=== PATIENT | male | born 1955 | race Caucasian/White ===

== ENCOUNTER 2020-08-14 19:07 | Emergency (ER) | payer MEDICAID, SELFPAY ==
[2020-08-14 19:09] VITALS: BP 165/99; PULSE 101; RESP 16; TEMP 37.4; O2SAT 95; BMI 32.8
--- NOTE | 2020-08-14 19:34 | ECG_ITS ---
APPROVED REPORT Exam: Resting ECG HR:102 bpm ECG Measurements Heart Rate 102 AXES WV 186 P 24 QRSd 84 QRS 38 QT 318 T 35 QTc 414 Conclusion Sinus tachycardia Otherwise normal ECG Electronically signed by : Jose Sellers, 08/16/2020 13:50:59
--- NOTE | 2020-08-14 19:35 | XR_ITS ---
PROCEDURE: XR CHEST 2V CLINICAL HISTORY: chest pain Left-sided chest pain COMPARISON: No exams were available for comparison FINDINGS: The cardiomediastinal silhouette and pulmonary vascularity are within normal limits. Increased density is present in the left lower lobe and in the right infrahilar region. These findings may be due to atelectasis and/or infiltrate. Upper lobes are clear. No acute bony findings. IMPRESSION: Atelectasis versus infiltrate in the left lung base and right infrahilar region. Suggest following till clear Dictated by: Wade Schaeffer MD 08/15/2020 05:58 Wade Schaeffer MD in [place] 08/15/2020 05:58
[2020-08-14 19:43] LABS: Basophils % 0.7 % (0.1-2.0); Eosinophils % 0.5 % (0.1-12.0); Hematocrit 42.9 % (42.0-52.0); Hemoglobin 14.1 g/dL (14.1-18.0); Lymphocytes # 0.9 K/mm3 (0.7-4.5); Lymphocytes % 15.7 % (10-50); Mean Corpuscular HGB Conc 32.8 g/dL (31.8-35.4); Mean Corpuscular Hemoglobin 28.2 pg (27.0-31.2); Mean Corpuscular Volume 86.1 fl (80-94); Mean Platelet Volume 6.7 fl (7.4-10.4); Monocytes # 0.3 K/mm3 (0.1-1.0); Monocytes % 5.7 % (1.7-9.3); Neutrophils # 4.2 K/mm3 (1.8-7.8); Neutrophils % 77.3 % (37.0-80.0); Platelet Count 226 K/mm3 (142-424); Red Blood Count 4.98 M/mm3 (4.60-6.20); White Blood Count 5.4 K/mm3 (4.8-10.8)
[2020-08-14 19:44] LABS: Chloride 99 mmol/L (98-107)
[2020-08-14 19:45] LABS: Sodium 136 mmol/L (136-145)
[2020-08-14 19:47] LABS: Blood Urea Nitrogen 14 mg/dl (9-20); Creatinine Clearance Estimated 93 mL/min (50-200); Estimated Glomerular Filt Rate 68 ml/min (>60); GFR (African American) 82 ML/MIN (>60)
--- NOTE | 2020-08-14 19:47 | HMH.EDGENADL ---
ED Disposition Condition on Discharge: Good - Critical Care Critical Care Time: No <Rahul Milian - Last Filed: 08/14/20 19:57> <Jaison Huynh - Last Filed: 08/14/20 22:06> Clinical Impression: COVID-19 Headache Qualifiers: Headache type: unspecified Headache chronicity pattern: acute headache Intractability: not intractable Qualified Code(s): R51.9 - Headache, unspecified Chest pain Qualifiers: Chest pain type: unspecified Qualified Code(s): R07.9 - Chest pain, unspecified Disposition: Home, Self-Care Instructions: Preventing the Spread of Coronavirus Discharge Instructions Additional Instructions: fluids and see pcp for follow up Referrals: Roxanna Pope [Primary Care Provider] - Attestation: On 08/14/20, the high probability of a clinically significant, sudden or life threatening deterioration of the following system(s) required my full and direct attention, intervention and personal management. The time I documented below is in addition to time spent performing reported procedures but includes the following listed in this critical care notation. Medical Decision Making - Shay Inquiry Pt receiving controlled substance: No - Lab Data Result diagrams: 08/14/20 19:20 08/14/20 19:20 - OSITO Score for Non-Stemi Age of Patient: 60-69 years old Heart Rate: 90-109 bpm Systolic Blood Pressure: 160-199 mmHg Serum Creatinine: 0.80-1.19 mg/dl CHF [place] Class: I-No CHF <Rahul Milian - Last Filed: 08/14/20 19:57> - Lab Data Lab results reviewed: Yes: I reviewed the patient's lab results. Result diagrams: 08/14/20 19:20 08/14/20 19:20 - Radiology Data #1 Image(s): Chest Image Reviewed: Yes I reviewed the patient's radiology image Preliminary Findings: Abnormal (early inflitrate ) - OSITO Score for Non-Stemi Age of Patient: 60-69 years old Heart Rate: 90-109 bpm Systolic Blood Pressure: 160-199 mmHg Serum Creatinine: 0.80-1.19 mg/dl CHF [place] Class: I-No CHF Other Risk Factors: None Non-Stemi Risk Score: 90 <Jaison Huynh - Last Filed: 08/14/20 22:06> Vital Signs: 08/14/20 19:09 Temperature 99.3 F Temperature Source Oral Pulse Rate [Left Radial] 101 H Respiratory Rate 16 Blood Pressure [Right Arm] 165/99 H Blood Pressure Mean [Right Arm] 121 Blood Pressure Source [Right Arm] Automatic Cuff Blood Pressure Position [Right Arm] Sitting 02 Sat by Pulse Oximetry 95 Oxygen Delivery Method Room Air - Lab Data Lab Results 08/14/20 19:20: WBC 5.4, RBC 4.98, Hgb 14.1, Hct 42.9, MCV 86.1, MCH 28.2, MCHC 32.8, RDW 13.0, Plt Count 226, MPV 6.7 L, Neut % (Auto) 77.3, Lymph % (Auto) 15.7, Stanton % (Auto) 5.7, Eos % (Auto) 0.5, Baso % (Auto) 0.7, Neut # (Auto) 4.2, Lymph # (Auto) 0.9, Stanton # (Auto) 0.3, Eos # (Auto) 0.0, Baso # (Auto) 0.0 08/14/20 19:20: Sodium 136, Potassium 4.0, Chloride 99, Carbon Dioxide 29, Anion Gap 12.0, BUN 14, Creatinine 1.10, Estimated Creat Clear 93, Estimated GFR 68, Est GFR ( Amer) 82, Glucose 121 H, Calcium 9.1, Troponin I < 0.01 08/14/20 19:20: SARS-CoV-2 IgG Ab (Rapid) Positive A, SARS-CoV-2 IgM Ab (Rapid) Positive A 08/14/20 20:20: Chlamy pneumoniae PCR Not detected, Adenovirus (PCR) Not detected, B. pertussis DNA (PCR) Not detected, Coronavirus OC43 (PCR) Not detected, Coronavirus HKU1 (PCR) Not detected, Coronavirus 229E (PCR) Not detected, COVID-19 PCR Detected A, Coronavirus NL63 (PCR) Not detected, Human Metapneumovir PCR Not detected, Influenza A (H1) PCR Not detected, Influ A (H1N1/09) PCR Not detected, Influenza A (H3) PCR Not detected, Influenza Type A (PCR) Not detected, Influenza Type B (PCR) Not detected, M. pneumoniae (PCR) Not detected, Parainfluenza 1 (PCR) Not detected, Parainfluenza 2 (PCR) Not detected, Parainfluenza 3 (PCR) Not detected, Parainfluenza 4 (PCR) Not detected, RSV (PCR) Not detected, Entero/Rhino (PCR) Not detected Orders (Tests/Meds): ED MEDICATIONS Generic Name Dose Route Start Last Admin Trade Name
[2020-08-14 19:48] LABS: Calcium 9.1 mg/dl (8.4-10.2); Carbon Dioxide 29 mmol/L (22.0-30.0); Glucose 121 mg/dl (74-100)
--- NOTE | 2020-08-14 19:54 | PC.NURSE ---
pt going for Xray
[2020-08-14 20:01] LABS: Troponin I < 0.01 ng/ml (0.00-0.034)
[2020-08-14 20:08] LABS: Coronavirus 19 IgM Antibody Positive (Negative)
[2020-08-14 20:26] LABS: Adenovirus,PCR Not Detected (NotDetected); Bordetella Pertussis Not Detected (NotDetected); Chlamydophila Pneumoniae, PCR Not Detected (NotDetected); Coronavirus 229E Not Detected (NotDetected); Coronavirus NL63 Not Detected (NotDetected); Coronavirus OC43 Not Detected (NotDetected); Coronovirus HKU1,PCR Not Detected (NotDetected); Human Metapneumovirus Not Detected (NotDetected); Influenza A, PCR Not Detected (NotDetected); Influenza AH1, 2009 Not Detected (NotDetected); Influenza AH1, PCR Not Detected (NotDetected); Influenza AH3,PCR Not Detected (NotDetected); Influenza B, PCR Not Detected (NotDetected); Mycoplasma Pneumoniae, PCR Not Detected (NotDetected); Parainfluenza 1, PCR Not Detected (NotDetected); Parainfluenza 2, PCR Not Detected (NotDetected); Parainfluenza 3, PCR Not Detected (NotDetected); Parainfluenza 4, PCR Not Detected (NotDetected); Respiratory Syncytial Virus Not Detected (NotDetected); Rhinovirus/Enterovirus Not Detected (NotDetected)
[2020-08-14 21:48] LABS: Coronavirus 19, PCR Detected (NotDetected)
--- NOTE | 2020-08-14 21:52 | PC.NURSE ---
notified of positive COVID results
[2020-08-14 22:09] VITALS: BP 151/99; PULSE 94; RESP 16; TEMP 37; O2SAT 94
[2020-08-15 15:19] LABS: Coronavirus 19 IgG Antibody Positive (Negative)
== END 2020-08-14 22:15 | disposition home or self-care (01) ==
PROVIDERS: Emergency Medicine; Emergency Provider Emergency Medicine; PCP Family Medicine
DX: U07.1 COVID-19 (principal); R07.9 Chest pain, unspecified; R51.9 Headache, unspecified
CPT/HCPCS: 71046; 80048; 84484; 85025; 86328; 87581; 87633; 87798; 93005; 96365; 96375; 99282; 99283

== ENCOUNTER 2020-11-11 18:04 | Emergency (ER) | payer OTHER, SELFPAY ==
[2020-11-11 18:10] VITALS: PULSE 78; RESP 16; TEMP 36.6; O2SAT 98; BMI 30.4
--- NOTE | 2020-11-11 19:09 | XR_ITS ---
PROCEDURE: XR RIBS RT 2V CLINICAL INDICATION: INJURY Posttraumatic pain. Blunt trauma with injury and pain, contusion/abrasion or hematoma following injury COMPARISON: CR XR CHEST 2V from 08/14/2020 FINDINGS: Multiple views of the right ribs show no obvious fracture. No lytic or blastic change. Consider follow-up in 7-[address] with 3D reformats if pain persists Frontal view of the chest shows no acute finding IMPRESSION: No acute findings. Dictated by: Wade Schaeffer MD 11/12/2020 05:30 Wade Schaeffer MD in [place] 11/12/2020 05:30
[2020-11-11 19:30] VITALS: BP 142/78; PULSE 78; RESP 16; TEMP 36.7; O2SAT 98; BMI 30.3
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
[2020-11-11 20:21] VITALS: BP 142/78; PULSE 78; RESP 16; TEMP 36.7; O2SAT 98
== END 2020-11-11 20:22 | disposition home or self-care (01) ==
PROVIDERS: Emergency Provider Nurse Practitioner; PCP Family Medicine
DX: S20.211A Contusion of right front wall of thorax, initial encounter (principal); V58.0XXA Driver of pick-up truck or van injured in noncollision transport accident in nontraffic accident, initial encounter; Y92.488 Other paved roadways as the place of occurrence of the external cause
CPT/HCPCS: 71100; 99202; G0463

== ENCOUNTER 2021-05-31 18:00 | Emergency (ER) | payer MEDICAID, SELFPAY ==
--- NOTE | 2021-05-31 | ECG_ITS ---
APPROVED REPORT Exam: Resting ECG HR:96 bpm ECG Measurements Heart Rate 96 AXES PA 182 P 20 QRSd 82 QRS 26 QT 320 T 16 QTc 404 Conclusion Normal sinus rhythm Normal ECG Electronically signed by : Jose Sellers, 06/01/2021 08:24:19
[2021-05-31 18:04] VITALS: BP 154/93; PULSE 97; RESP 18; TEMP 37; O2SAT 97; BMI 32.7
[2021-05-31 18:05] VITALS: BMI 32.7
--- NOTE | 2021-05-31 18:06 | XR_ITS ---
PROCEDURE INFORMATION: Exam: XR Chest Exam date and time: 05/31/2021 6:06 PM Age: 66 years old Clinical indication: Sternal or substernal pain; Patient HX: Cough, chest pain; Additional info: Cp TECHNIQUE: Imaging protocol: XR of the chest. Views: 4 or more views. COMPARISON: CR XR CHEST 2V 08/14/2020 7:48 PM FINDINGS: Airway: Patent Lungs: Unremarkable. No consolidation. Pleural spaces: Unremarkable. No pleural effusion. No pneumothorax. Heart/Mediastinum: Unremarkable. No cardiomegaly. Bones/joints: No acute skeletal abnormality or aggressive osseous lesion. IMPRESSION: No acute findings.
--- NOTE | 2021-05-31 18:06 | HMH.EDGENADL ---
ED Disposition Clinical Impression: Acute bronchitis, Acute sinusitis Disposition: Home, Self-Care Condition on Discharge: Good Additional Instructions: medication as directed . foloow up with PCP. Prescriptions: Amoxicillin/Potassium Clav [Augmentin 875-125 Tablet] 1 tab PO Q12H 10 Days #20 tab Transmission Status: Pending to [id number] Benzonatate [Tessalon Perle 100mg Cap*] 100 mg PO TID PRN #30 cap PRN Reason: Congestion Transmission Status: Pending to [facility] - Critical Care Critical Care Time: No Attestation: On , the high probability of a clinically significant, sudden or life threatening deterioration of the following system(s) required my full and direct attention, intervention and personal management. The time I documented below is in addition to time spent performing reported procedures but includes the following listed in this critical care notation. Medical Decision Making - Medical Records MR Comment: Chest x-ray was clear no infiltrate. EKG was normal no acute findings. Troponin was negative. Patient has symptoms of acute bronchitis and sinusitis. He will be treated accordingly. - Shay Inquiry Pt receiving controlled substance: No Shay was queried for this patient: No Vital Signs: 05/31/21 18:04 Temperature 98.6 F Temperature Source Oral Pulse Rate [Right] 97 H Respiratory Rate 18 Blood Pressure [Right Arm] 154/93 H Blood Pressure Mean [Right Arm] 113 02 Sat by Pulse Oximetry 97 Oxygen Delivery Method Room Air - Lab Data Lab Results 05/31/21 18:05: WBC 8.2, RBC 5.40, Hgb 15.4, Hct 45.6, MCV 84.3, MCH 28.6, MCHC 33.9, RDW 14.2, Plt Count 195, MPV 7.4, Neut % (Auto) 79.5, Lymph % (Auto) 11.5, Mcleod % (Auto) 6.3, Eos % (Auto) 2.3, Baso % (Auto) 0.4, Neut # (Auto) 6.5, Lymph # (Auto) 0.9, Mcleod # (Auto) 0.5, Eos # (Auto) 0.2, Baso # (Auto) 0.0 05/31/21 18:05: Sodium 141, Potassium 4.2, Chloride 104, Carbon Dioxide 28, Anion Gap 13.2, BUN 10, Creatinine 1.10, Estimated Creat Clear 91, Estimated GFR 67, Est GFR ( Amer) 82, Glucose 97, Calcium 9.8, Total Bilirubin 0.6, AST 21, ALT 16, Alkaline Phosphatase 87, Troponin I < 0.01, Total Protein 8.3 H, Albumin 4.8, Globulin 3.5 H, Albumin/Globulin Ratio 1.4 Result diagrams: 05/31/21 18:05 05/31/21 18:05 Orders (Tests/Meds): ORDERS Category Date Time Status Troponin I Q3H Lab 05/31/21 21:15 Ordered Troponin I Q3H Lab 06/01/21 00:15 Ordered General Adult HPI - General Stated complaint: CHEST PAIN Time Seen by Provider: 05/31/21 18:07 - History of Present Illness HPI narrative: Male complains of upper respiratory congestion and chest congestion and productive cough for the past 24 hours. He denies any chest pain he said chest chest congestion. No fever or chills. No nausea or vomiting. He does not smoke or drink. He has no history of coronary artery disease. He takes medication for hypertension and borderline diabetes. He does not have any shortness of breath with exertion or at rest. He has no orthopnea syndrome. No swelling of the lower extremities. No abdominal pain. No dysuria or urinary symptoms. Onset (ago): day(s) (two) - Related Data Previous Rx's Medication Instructions Recorded Amoxicillin/Potassium Clav 1 tab PO Q12H 10 Days #20 tab 05/31/21 [Augmentin 875-125 Tablet] Benzonatate [Tessalon Perle 100mg 100 mg PO TID PRN #30 cap 05/31/21 Cap*] Allergies Allergy/AdvReac Type Severity Reaction Status Date / Time No Known Allergies Allergy Verified 08/14/20 19:34 [facility] History - Hepatitis A Screen Attestation statement:: This patient has been screened for Hepatitis A risk factors. - Social History Alcohol Intake: never Occupational Status: other ROS Obtained: Yes All systems reviewed & no additional complaints - Constitutional Constitutional: Reports system reviewed and no additional complaints, except as docu - Eyes Eyes: Reports
[2021-05-31 18:15] LABS: Basophils % 0.4 % (0.1-2.0); Eosinophils # 0.2 K/mm3 (0.0-0.4); Eosinophils % 2.3 % (0.1-12.0); Hematocrit 45.6 % (42.0-52.0); Hemoglobin 15.4 g/dL (14.1-18.0); Lymphocytes # 0.9 K/mm3 (0.7-4.5); Lymphocytes % 11.5 % (10-50); Mean Corpuscular HGB Conc 33.9 g/dL (31.8-35.4); Mean Corpuscular Hemoglobin 28.6 pg (27.0-31.2); Mean Corpuscular Volume 84.3 fl (80-94); Mean Platelet Volume 7.4 fl (7.4-10.4); Monocytes # 0.5 K/mm3 (0.1-1.0); Monocytes % 6.3 % (1.7-9.3); Neutrophils # 6.5 K/mm3 (1.8-7.8); Neutrophils % 79.5 % (37.0-80.0); Platelet Count 195 K/mm3 (142-424); Red Cell Distribution Width 14.2 % (11.5-17.5); White Blood Count 8.2 K/mm3 (4.8-10.8)
[2021-05-31 18:18] LABS: Chloride 104 mmol/L (98-107); Potassium 4.2 mmoL/L (3.5-5.1); Sodium 141 mmol/L (136-145)
[2021-05-31 18:20] LABS: Alanine Aminotransferase 16 U/L (12-78); Aspartate Amino Transferase 21 U/L (17-59); Blood Urea Nitrogen 10 mg/dl (9-20); Creatinine Clearance Estimated 91 mL/min (50-200); Estimated Glomerular Filt Rate 67 ml/min (>60); GFR (African American) 82 ML/MIN (>60)
[2021-05-31 18:21] LABS: Albumin Level 4.8 g/dl (3.5-5.0); Albumin/Globulin Ratio 1.4 (1.1-1.8); Alkaline Phosphatase 87 U/L (38-126); Anion Gap 13.2 mEq/L (5-15); Bilirubin,Total 0.6 mg/dl (0.2-1.3); Calcium 9.8 mg/dl (8.4-10.2); Carbon Dioxide 28 mmol/L (22.0-30.0); Globulin 3.5 g/dL (1.3-3.2); Glucose 97 mg/dl (74-100); Total Protein,Serum 8.3 g/dl (6.3-8.2)
[2021-05-31 18:33] LABS: Troponin I < 0.01 ng/ml (0.00-0.034)
[2021-05-31 19:24] VITALS: BP 147/73; PULSE 91; RESP 19; TEMP 37; O2SAT 97
== END 2021-05-31 19:26 | disposition home or self-care (01) ==
PROVIDERS: Emergency Provider Internal Medicine
DX: J20.9 Acute bronchitis, unspecified (principal); J01.90 Acute sinusitis, unspecified
CPT/HCPCS: 71045; 80053; 84484; 85025; 93005; 99283

== ENCOUNTER 2022-12-16 21:44 | Emergency (ER) | payer MEDICARE, MEDICAID, SELFPAY ==
[2022-12-16 21:45] VITALS: BP 146/94; PULSE 78; RESP 16; TEMP 36.7; O2SAT 97; BMI 33.8
--- NOTE | 2022-12-16 23:19 | PC.NURSE ---
Pt B. RN notified.
[2022-12-16 23:24] LABS: POC Glucose,Bedside 443 (70-110)
[2022-12-16 23:31] VITALS: BP 149/92; O2SAT 96
[2022-12-16 23:38] LABS: Basophils % 0.3 % (0.1-2.0); Eosinophils % 0.4 % (0.1-12.0); Hematocrit 48.2 % (42.0-52.0); Hemoglobin 15.7 g/dL (14.1-18.0); Lymphocytes # 0.7 K/mm3 (0.7-4.5); Lymphocytes % 7.8 % (10-50); Mean Corpuscular HGB Conc 32.5 g/dL (31.8-35.4); Mean Corpuscular Hemoglobin 28.5 pg (27.0-31.2); Mean Corpuscular Volume 87.7 fl (80-94); Mean Platelet Volume 7.7 fl (7.4-10.4); Monocytes # 0.1 K/mm3 (0.1-1.0); Monocytes % 1.2 % (1.7-9.3); Neutrophils # 7.6 K/mm3 (1.8-7.8); Neutrophils % 90.2 % (37.0-80.0); Platelet Count 238 K/mm3 (142-424); Red Cell Distribution Width 13.4 % (11.5-17.5); White Blood Count 8.5 K/mm3 (4.8-10.8)
[2022-12-16 23:48] LABS: Alanine Aminotransferase 34 U/L (12-78); Albumin Level 4.5 g/dl (3.5-5.0); Albumin/Globulin Ratio 1.5 (1.1-1.8); Alkaline Phosphatase 127 U/L (38-126); Anion Gap 16.7 mEq/L (5-15); Aspartate Amino Transferase 33 U/L (17-59); Bilirubin,Total 0.5 mg/dl (0.2-1.3); Blood Urea Nitrogen 17 mg/dl (9-20); Calcium 9.5 mg/dl (8.4-10.2); Carbon Dioxide 21 mmol/L (22.0-30.0); Chloride 103 mmol/L (98-107); Creatinine Clearance Estimated 79 mL/min (50-200); Estimated Glomerular Filt Rate 55 ml/min (>60); GFR (African American) 67 ML/MIN (>60); Globulin 3.1 g/dL (1.3-3.2); Potassium 4.7 mmoL/L (3.5-5.1); Sodium 136 mmol/L (136-145); Total Protein,Serum 7.6 g/dl (6.3-8.2)
[2022-12-16 23:58] LABS: MANUAL DIFFERENTIAL MANUAL DIFFERENTIAL (MANUAL DIFF)
[2022-12-17] VITALS: BP 127/83; PULSE 77; O2SAT 96
[2022-12-17 00:01] LABS: Glucose 430 mg/dl (74-100)
--- NOTE | 2022-12-17 00:08 | PC.NURSE ---
Rechecked pt condition. No needs voiced.
[2022-12-17 00:16] LABS: Acetone, Serum (Rapid) None Detected (None Detect)
[2022-12-17 00:26] LABS: Lymphocytes % 6 % (10-50); Monocytes % 1 % (2-9); Neutrophils % 93 % (42-76); Platelet Estimate Normal; RBC Morphology Normal; Total Cells Counted 100
[2022-12-17 00:30] VITALS: BP 137/84; PULSE 77; O2SAT 95
[2022-12-17 00:44] LABS: Microscopic, Urine URINE MICROSCOPIC (MICROSCOPIC)
[2022-12-17 00:46] LABS: Appearance,Urine CLEAR (Clear); Bilirubin,Urine Negative (Negative); Blood, Urine TRACE-I (Negative); Color,Urine YELLOW (Yellow); Glucose,Urine (UA) 3+ (Negative); Ketones,Urine 1+ (Negative); Leukocyte Esterase,Urine Negative (Negative); Nitrate,Urine Negative (Negative); PH,Urine 5.5 (5.0-8.5); Protein,Urine 2+ (Negative); Urobilinogen,Urine 0.2 EU/dl (0.2)
[2022-12-17 01:00] LABS: RBC,Urine Occasional #/hpf (0-3); Squamous Epithelial Cell,Urine Occasional #/hpf (0-5)
[2022-12-17 01:47] VITALS: BP 127/87; PULSE 77; RESP 16; TEMP 36.7; O2SAT 96
--- NOTE | 2022-12-17 06:52 | HMH.EDGENADL ---
Discharge Plan Disposition Patient Disposition: Home, Self-Care Chief Complaint: Hyper/Hypoglycemia Prescriptions Prescriptions: No Action amoxicillin-pot clavulanate 1 EACH tablet 1 tab PO Q12H 10 Days Qty: 20 0RF benzonatate 100 MG capsule 100 mg PO TID PRN (Reason: Congestion) Qty: 30 0RF Referrals Follow up/Referrals: Roxanna Pope [Primary Care Provider] - See instructions Clinical Impressions Clinical Impression: Diabetes mellitus, Hyperglycemia Instructions Patient Instructions: DI for Hyperglycemia -- Adult, Type 2 Diabetes Discharge ED Provider: Amina (ED)Jaison General Adult HPI General Chief complaint: Hyper/Hypoglycemia Stated complaint: sugar 440 Time Seen by Provider: 12/17/22 06:52 Mode of Arrival: Ambulatory Source of Information: Patient and Medical Record Limitations: No Limitations Description of Symptoms (Recalled from ER Triage Doc. by RN): pt states he recieved a steroid shot in shoulder from [facility] that ans was toid if fsbs was over 300 to come into er 443 History of Present Illness HPI narrative: had elevated glu after injection of steroids - known hx of diabetes and has been compliant with meds - no other sx Onset (ago): hour(s) Severity: moderate Related Data Previous Rx's Medication Instructions Recorded amoxicillin 875 mg-potassium 1 tab PO Q12H 10 days #20 tabs 05/31/21 clavulanate 125 mg tablet benzonatate 100 mg capsule 100 mg PO TID PRN Congestion #30 05/31/21 caps Allergies Allergy/AdvReac Type Severity Reaction Status Date / Time No Known Allergies Allergy Verified 08/14/20 19:34 [facility] Disclaimer: The information contained in this section may have been updated after the patient was seen, as this information can be updated by other users. Social History Smoking Status: Never smoker alcohol intake: never current occupational status: other Travel in the last 8 weeks: None ROS Obtained: Yes All systems reviewed & no additional complaints except as documented Physical Exam General General appearance: alert Head Head exam: normocephalic Eye Eye exam: Present PERRL and EOMI ENT ENT exam: Present mucous membranes moist Neck Neck exam: Present trachea midline Respiratory Respiratory exam: Present normal lung sounds bilaterally; Absent respiratory distress Cardiovascular Cardiovascular exam: Present regular rate Abdominal Exam Abdominal exam: Present soft Extremities Exam Extremities exam: Present full ROM Neurological Exam Neurological exam: Present alert, oriented X3 and CN II-XII intact; Absent motor sensory deficit Psychiatric Psychiatric exam: Present normal affect Skin Skin exam: Absent rash Medical Decision Making Medical Records Medical records reviewed: Yes I reviewed the patient's medical records. Shay Inquiry Pt receiving controlled substance: No Vital Signs: 12/16/22 21:45 12/16/22 23:31 12/17/22 00:00 Temperature 98.1 F Temperature Source Oral Pulse Rate 77 Pulse Rate [Right] 78 Respiratory Rate 16 Blood Pressure 149/92 H 127/83 Blood Pressure [Right Arm] 146/94 H Blood Pressure Mean 111 Blood Pressure Mean [Right Arm] 111 02 Sat by Pulse Oximetry 97 96 96 Oxygen Delivery Method Room Air 12/17/22 00:30 12/17/22 01:47 Temperature 98.1 F Temperature Source Oral Pulse Rate 77 77 Pulse Rate [Right] Respiratory Rate 16 Blood Pressure 137/84 127/87 Blood Pressure [Right Arm] Blood Pressure Mean Blood Pressure Mean [Right Arm] 02 Sat by Pulse Oximetry 95 Oxygen Delivery Method Room Air Lab Data Lab results reviewed: Yes I reviewed the patient's lab results. Lab Results 12/16/22 23:17: POC Glucose 443 H* 12/16/22 23:31: WBC 8.5, RBC 5.50, Hgb 15.7, Hct 48.2, MCV 87.7, MCH 28.5, MCHC 32.5, RDW 13.4, Plt Count 238, MPV 7.7, Neut % (Auto) 90.2 H, Lymph % (Auto) 7.8 L, Kimball % (Auto) 1.2 L, Eos % (Auto) 0.4, Baso % (Auto) 0.3, Neut # (Auto
== END 2022-12-17 06:57 | disposition home or self-care (01) ==
PROVIDERS: Emergency Provider Emergency Medicine; PCP Family Medicine
DX: E11.65 Type 2 diabetes mellitus with hyperglycemia (principal)
CPT/HCPCS: 80053; 81001; 82009; 82962; 85007; 85025; 96361; 96374; 99285

== ENCOUNTER 2024-12-08 14:05 | Emergency (ER) | payer MEDICARE, MEDICAID, SELFPAY ==
--- NOTE | 2024-12-08 15:57 | ED_ITS ---
Discharge Plan Disposition Patient Disposition: Home, Self-Care Condition: Good Prescriptions Prescriptions: New benzonatate 100 mg capsule 100 mg PO TIDP PRN (Reason: Cough) Qty: 30 0RF methylprednisolone 4 mg Tablets,Dose Pack 4 mg PO DIRECTED 6 Days Qty: 21 0RF Rx Instructions: Take 1 pack as directed for 6 days amoxicillin-pot clavulanate 875-125 mg Tablet 1 tab PO Q12H Qty: 20 0RF oseltamivir [Tamiflu] 75 mg capsule 75 mg PO BID 5 Days Qty: 10 0RF Referrals Follow up/Referrals: Roxanna Pope [Primary Care Provider] - See instructions Activity Restrictions/Add. Instructions Additional Instructions/Restrictions: Drink plenty of fluids. Take tylenol or ibuprofen for pain or fever. Take the medications as directed. Follow up with your regular doctor. GO TO THE ER FOR ANY WORSENING SYMPTOMS Clinical Impressions Clinical Impression: Influenza A Instructions Patient Instructions: DI for Acute Bronchitis, DI for Influenza -- Adult, Methylprednisolone, Amoxicillin and Clavulanic Acid Print Language Print Language: [place] Discharge ED Provider: Quique Coates [facility] General Stated complaint: headache, chest conges, leg pain, B/A, chills Time Seen by Provider: 12/08/24 15:57 Related Data Previous Rx's ?Medication ?Instructions ?Recorded amoxicillin 875 mg-potassium 1 tab PO Q12H #20 tabs 12/08/24 clavulanate 125 mg tablet benzonatate 100 mg capsule 100 mg PO TIDP PRN Cough #30 caps 12/08/24 methylprednisolone 4 mg tablets in 4 mg PO DIRECTED 6 days #21 tabs 12/08/24 a dose pack oseltamivir 75 mg capsule (Tamiflu) 75 mg PO BID 5 days #10 caps 12/08/24 Allergies Allergy/AdvReac Type Severity Reaction Status Date / Time No Known Allergies Allergy Verified 08/14/20 19:34 [facility] Disclaimer: The information contained in this section may have been updated after the patient was seen, as this information can be updated by other users. Social History Smoking Status: Never smoker alcohol intake: never current occupational status: other Travel in the last 8 weeks: None Have you lived/traveled outside [place] in past 30 days?: No Contact w/someone who lives/traveled outside US past 30 days?: No Exposure to someone with infectious disease in past 14 days?: No Do you have a fever (greater than 100.4 F or 38 C)?: No Have you tested positive for COVID-19: No Exposed to someone with COVID-19 in past 14 days?: No Do you have a sore throat?: No Do you have a cough?: No Do you have any weakness?: Yes Do you have any diarrhea?: No Are you experiencing any unusual bleeding?: No Do you have any muscle aches/pain?: Yes Do you have any abdominal pain?: No Are you experiencing loss of taste or smell?: No ROS Obtained: Yes All systems reviewed & no additional complaints except as documented Constitutional Constitutional: Reports chills and Reports fever(s) Eyes Eyes: Denies eye discharge ENT Ears, Nose, Mouth, and Throat: Reports as per HPI Cardiovascular Cardiovascular: Denies chest pain Respiratory Respiratory: Denies chest congestion and Reports cough Gastrointestinal Gastrointestingal: Reports nausea; Denies abdominal pain, constipation, cramping, diarrhea or vomiting Musculoskeletal Musculoskeletal: Denies arthralgias Integumentary/Breasts Skin/Breast: Denies rash Neurologic Neurologic: Denies paresthesias Physical Exam General General appearance: alert and in no apparent distress Head Head exam: atraumatic, normocephalic and normal inspection Eye Eye exam: Present normal appearance, PERRL and EOMI ENT ENT exam: Present mucous membranes moist and normal external ear exam Expanded ENT Exam TM/Canal exam: Bilateral TM: erythema and bulging Nose exam: Absent sinus tenderness Mouth exam: Present normal external inspection; Absent drooling Teeth exam: Present normal inspection Throat exam: Present tonsillar erythema, tonsillomegaly and tonsillar exudate Neck Neck exam: Present normal inspection, full ROM and trachea midline; Absent tenderness, meningismus or lymphadenopathy Chest Chest inspection: Present normal inspection and symmetric chest wall rise; Absent tenderness Respiratory Respiratory exam: Present normal lung sounds bilaterally; Absent respiratory distress, wheezes, stridor or accessory muscle use Cardiovascular Cardiovascular exam: Present regular rate and normal rhythm; Absent systolic murmur or diastolic murmur Abdominal Exam Abdominal exam: Present soft and normal bowel sounds; Absent distention, tenderness, guarding, rebound or rigidity Extremities Exam Extremities exam: Present normal inspection and normal capillary refill; Absent calf tenderness Back Exam Back exam: Present normal inspection and full ROM; Absent tenderness, CVA tenderness (R) or CVA tenderness (L) Neurological Exam Neurological exam: Present alert, oriented X3 and CN II-XII intact Psychiatric Psychiatric exam: Present normal affect and normal mood Skin Skin exam: Present warm, dry, intact and normal color Medical Decision Making Medical Records Medical records reviewed: No I reviewed the patient's medical records. Screening: Per USPSTF and CDC recommendations, given the prevalence of disease in our region, it is our hospital?s policy to screen for HIV and viral Hepatitis for all patients aged 18 and over and those with ongoing risk factors. Shay Inquiry Pt receiving controlled substance: No Lab Data Lab results reviewed: Yes I reviewed the patient's lab results.
[2024-12-08 16:00] VITALS: BP 141/76; PULSE 106; RESP 19; TEMP 37; O2SAT 97; BMI 27.8
[2024-12-08 16:24] LABS: UTC Influenza A Antigen Negative (Negative)
[2024-12-08 16:25] LABS: UTC Influenza B Antigen Negative (Negative)
[2024-12-08 16:48] VITALS: BP 141/76; PULSE 106; RESP 19; TEMP 37; O2SAT 97
[2024-12-08 16:56] LABS: Coronavirus 19, PCR Not Detected (NotDetected); Influenza B, PCR Not Detected (NotDetected)
[2024-12-08 17:20] LABS: Influenza A, PCR Detected (NotDetected)
== END 2024-12-08 16:53 | disposition home or self-care (01) ==
PROVIDERS: Emergency Provider Nurse Practitioner Family; PCP Family Medicine
DX: J10.1 Influenza due to other identified influenza virus with other respiratory manifestations (principal)
CPT/HCPCS: 87636; 87804; 99213; G0381